=== PATIENT | female | born 1950 | race Caucasian/White ===

== ENCOUNTER → 2019-02-02 | Outpatient (CLI) | payer OTHER ==
[~2019-02-02] MED LIST: ASPI325 PO; ATOR20; CLOP75; HYDACE5 PO; LISI5; METO25; NAPR500 PO; NITR.4SL
[2019-02-02 17:11] LABS: BASOPHILS ABSOLUTE AUTO 0.04 K/mm3 (0.00-0.23); BASOPHILS PERCENT AUTO 0 % (0-2); EOSINOPHILS ABSOLUTE AUTO 0.06 K/mm3 (0.00-0.68); EOSINOPHILS PERCENT AUTO 1 % (0-6); IMMATURE GRAN ABSOLUTE AUTO 0.04 K/mm3 (0.00-0.10); IMMATURE GRAN PERCENT AUTO 0 % (0-1); LYMPHOCYTES ABSOLUTE AUTO 2.34 K/mm3 (0.84-5.20); LYMPHOCYTES PERCENT AUTO 21 % (21-46); MONOCYTES ABSOLUTE AUTO 0.77 K/mm3 (0.16-1.47); MONOCYTES PERCENT AUTO 7 % (4-13); Mean Corpuscular HGB 32.3 pg (26.0-34.0); Mean Corpuscular HGB Conc 34.1 g/dL (31.5-36.5); Mean Corpuscular Volume 95 fL (80-100); NEUTROPHILS ABSOLUTE AUTO 7.85 K/mm3 (1.96-9.15); NEUTROPHILS PERCENT AUTO 71 % (41-73); Platelet Count 217 K/mm3 (150-400); RDW Coefficient Variation 12.1 % (11.7-14.2); RDW Standard Deviation 42.1 fL (35.1-46.3); Red Blood Cell Count 4.65 M/mm3 (3.80-5.20)
[2019-02-02 18:01] LABS: Alanine Aminotransfer (ALT/SGP 23 U/L (12-78); Albumin, Blood 4.2 g/dL (3.4-5.0); Albumin/Globulin Ratio 1.2 (0.8-1.8); Alk Phos 99 U/L (50-136); Anion Gap 9 mmol/L (6-16); Aspartate Aminotrans (AST/SGOT 15 U/L (12-37); Bilirubin, Total 1.1 mg/dL (0.1-1.0); Blood Urea Nitrogen 7 mg/dL (8-24); Bun/Creatinine Ratio 10.3 (12.0-20.0); CHOL/HDL RATIO 3.7; CO2, Blood 28 mmol/L (21-32); Calcium, Blood 9.3 mg/dL (8.5-10.1); Chloride, Blood 104 mmol/L (98-108); Cholesterol 143 mg/dL (50-200); Creatinine, Blood 0.68 mg/dL (0.40-1.00); Globulin, Blood 3.5 g/dL (2.2-4.0); Glomerular Filtration Rate >60 (60-); Glucose, Blood 109 mg/dL (70-99); HDL Cholesterol 39 mg/dL (>39); LDL/HDL RATIO 2.1; Low Density Lipoprotein Chol 82 mg/dL (0-110); Potassium, Blood 3.9 mmol/L (3.5-5.5); Sodium, Blood 141 mmol/L (136-145); Total Protein, Blood 7.7 g/dL (6.4-8.2); Triglycerides 109 mg/dL (30-160); Very Low Density Lipoprot Chol 21 mg/dL (6-32)
== END | disposition home or self-care (01) ==
LOC: LAB SHORT 16:45 → LAB 16:45
PROVIDERS: Nurse Practitioner Family
DX: Z11.59 Encounter for screening for other viral diseases (principal); I25.700 Atherosclerosis of coronary artery bypass graft(s), unspecified, with unstable angina pectoris; E78.5 Hyperlipidemia, unspecified; I10 Essential (primary) hypertension
CPT/HCPCS: 80053; 80061; 85025; 86803

== ENCOUNTER → 2019-08-08 | Outpatient (CLI) | payer OTHER ==
[2019-08-08 18:14] LABS: Alanine Aminotransfer (ALT/SGP 31 U/L (12-78); Alk Phos 99 U/L (50-136); Anion Gap 5 mmol/L (6-16); Aspartate Aminotrans (AST/SGOT 20 U/L (12-37); Bilirubin, Total 0.7 mg/dL (0.1-1.0); Blood Urea Nitrogen 9 mg/dL (8-24); Bun/Creatinine Ratio 12.7 (12.0-20.0); CO2, Blood 28 mmol/L (21-32); Calcium, Blood 9.3 mg/dL (8.5-10.1); Chloride, Blood 106 mmol/L (98-108); Creatinine, Blood 0.71 mg/dL (0.40-1.00); Globulin, Blood 3.9 g/dL (2.2-4.0); Glomerular Filtration Rate >60 (60-); Glucose, Blood 96 mg/dL (70-99); Potassium, Blood 4.2 mmol/L (3.5-5.5); Sodium, Blood 139 mmol/L (136-145); Total Protein, Blood 7.9 g/dL (6.4-8.2)
== END | disposition home or self-care (01) ==
LOC: LAB SHORT 16:52 → LAB 16:52
PROVIDERS: Nurse Practitioner Primary Care
DX: R73.9 Hyperglycemia, unspecified (principal); R53.83 Other fatigue
CPT/HCPCS: 80053; 83036; 84443

== ENCOUNTER → 2019-09-06 | Outpatient (CLI) | payer OTHER ==
[2019-09-06 17:24] LABS: BASOPHILS ABSOLUTE AUTO 0.04 K/mm3 (0.00-0.23); BASOPHILS PERCENT AUTO 1 % (0-2); EOSINOPHILS ABSOLUTE AUTO 0.12 K/mm3 (0.00-0.68); EOSINOPHILS PERCENT AUTO 1 % (0-6); Hematocrit 45.4 % (33.0-51.0); Hemoglobin 15.1 g/dL (11.5-16.0); IMMATURE GRAN ABSOLUTE AUTO 0.01 K/mm3 (0.00-0.10); IMMATURE GRAN PERCENT AUTO 0 % (0-1); LYMPHOCYTES PERCENT AUTO 33 % (21-46); MONOCYTES ABSOLUTE AUTO 0.72 K/mm3 (0.16-1.47); MONOCYTES PERCENT AUTO 8 % (4-13); Mean Corpuscular HGB 31.1 pg (26.0-34.0); Mean Corpuscular HGB Conc 33.3 g/dL (31.5-36.5); Mean Corpuscular Volume 94 fL (80-100); Mean Platelet Volume 11.6 fL (9.1-12.4); NEUTROPHILS ABSOLUTE AUTO 4.99 K/mm3 (1.96-9.15); NEUTROPHILS PERCENT AUTO 57 % (41-73); Platelet Count 239 K/mm3 (150-400); RDW Coefficient Variation 12.2 % (11.7-14.2); RDW Standard Deviation 42.1 fL (35.1-46.3); Red Blood Cell Count 4.85 M/mm3 (3.80-5.20); White Blood Cell Count 8.78 K/mm3 (4.00-11.30)
[2019-09-06 17:54] LABS: CHOL/HDL RATIO 3.2; Cholesterol 142 mg/dL (50-200); HDL Cholesterol 44 mg/dL (>39); LDL Direct Measurement 81 mg/dL (0-130); LDL/HDL RATIO 1.6; Low Density Lipoprotein Chol 72 mg/dL (0-110); Triglycerides 128 mg/dL (30-160); Very Low Density Lipoprot Chol 25 mg/dL (6-32)
[2019-09-09 14:07] LABS: HEPATITIS C QUANTITATION HCV Not Detected IU/mL (.)
== END | disposition home or self-care (01) ==
LOC: LAB 16:28 → LAB SHORT 16:28
PROVIDERS: Nurse Practitioner Family
DX: E78.5 Hyperlipidemia, unspecified (principal); B18.2 Chronic viral hepatitis C
CPT/HCPCS: 80061; 83721; 85025

== ENCOUNTER → 2020-08-21 | Outpatient (CLI) | payer OTHER ==
[2020-08-21 19:41] LABS: BASOPHILS ABSOLUTE AUTO 0.04 K/mm3 (0.00-0.23); BASOPHILS PERCENT AUTO 1 % (0-2); EOSINOPHILS ABSOLUTE AUTO 0.11 K/mm3 (0.00-0.68); EOSINOPHILS PERCENT AUTO 1 % (0-6); Hematocrit 44.5 % (33.0-51.0); Hemoglobin 14.7 g/dL (11.5-16.0); IMMATURE GRAN ABSOLUTE AUTO 0.01 K/mm3 (0.00-0.10); IMMATURE GRAN PERCENT AUTO 0 % (0-1); LYMPHOCYTES ABSOLUTE AUTO 2.93 K/mm3 (0.84-5.20); LYMPHOCYTES PERCENT AUTO 36 % (21-46); MONOCYTES ABSOLUTE AUTO 0.67 K/mm3 (0.16-1.47); MONOCYTES PERCENT AUTO 8 % (4-13); Mean Corpuscular HGB 30.9 pg (26.0-34.0); Mean Corpuscular Volume 94 fL (80-100); Mean Platelet Volume 11.5 fL (9.1-12.4); NEUTROPHILS PERCENT AUTO 55 % (41-73); Platelet Count 236 K/mm3 (150-400); RDW Coefficient Variation 11.7 % (11.7-14.2); RDW Standard Deviation 40.5 fL (35.1-46.3); Red Blood Cell Count 4.75 M/mm3 (3.80-5.20); White Blood Cell Count 8.26 K/mm3 (4.00-11.30)
[2020-08-21 20:28] LABS: Alanine Aminotransfer (ALT/SGP 31 U/L (12-78); Albumin/Globulin Ratio 1.2 (0.8-1.8); Anion Gap 6 mmol/L (6-16); Aspartate Aminotrans (AST/SGOT 18 U/L (12-37); Bilirubin, Total 0.7 mg/dL (0.1-1.0); Blood Urea Nitrogen 10 mg/dL (8-24); Bun/Creatinine Ratio 16.6 (12.0-20.0); CHOL/HDL RATIO 3.3; CO2, Blood 24 mmol/L (21-32); Calcium, Blood 9.1 mg/dL (8.5-10.1); Chloride, Blood 110 mmol/L (98-108); Cholesterol 135 mg/dL (50-200); Globulin, Blood 3.4 g/dL (2.2-4.0); Glomerular Filtration Rate >60 (60-); Glucose, Blood 114 mg/dL (70-99); HDL Cholesterol 41 mg/dL (>39); LDL/HDL RATIO 1.8; Low Density Lipoprotein Chol 74 mg/dL (0-110); Potassium, Blood 3.7 mmol/L (3.5-5.5); Sodium, Blood 140 mmol/L (136-145); Total Protein, Blood 7.4 g/dL (6.4-8.2); Triglycerides 98 mg/dL (30-160); Very Low Density Lipoprot Chol 19 mg/dL (6-32)
[2020-08-21 20:31] LABS: Alk Phos 76 U/L (50-136)
== END | disposition home or self-care (01) ==
LOC: LAB SHORT 14:45 → LAB 14:45
PROVIDERS: Nurse Practitioner Family
DX: E78.5 Hyperlipidemia, unspecified (principal); I10 Essential (primary) hypertension
CPT/HCPCS: 80053; 80061; 85025

== ENCOUNTER → 2021-09-18 | Outpatient (CLI) | payer OTHER ==
[2021-09-19 06:04] LABS: Alanine Aminotransfer (ALT/SGP 22 U/L (12-78); Albumin, Blood 4.1 g/dL (3.4-5.0); Albumin/Globulin Ratio 1.1 (0.8-1.8); Alk Phos 83 U/L (50-136); Anion Gap 5 mmol/L (6-16); Aspartate Aminotrans (AST/SGOT 13 U/L (12-37); Bilirubin, Total 0.9 mg/dL (0.1-1.0); Blood Urea Nitrogen 11 mg/dL (8-24); Bun/Creatinine Ratio 14.9 (12.0-20.0); CHOL/HDL RATIO 3.6; CO2, Blood 29 mmol/L (21-32); Calcium, Blood 9.5 mg/dL (8.5-10.1); Chloride, Blood 106 mmol/L (98-108); Cholesterol 170 mg/dL (50-200); Creatinine, Blood 0.74 mg/dL (0.40-1.00); Globulin, Blood 3.6 g/dL (2.2-4.0); Glomerular Filtration Rate >60 (60-); Glucose, Blood 100 mg/dL (70-99); HDL Cholesterol 47 mg/dL (>39); LDL/HDL RATIO 2.1; Low Density Lipoprotein Chol 99 mg/dL (0-110); Potassium, Blood 3.9 mmol/L (3.5-5.5); Sodium, Blood 140 mmol/L (136-145); Total Protein, Blood 7.7 g/dL (6.4-8.2); Triglycerides 118 mg/dL (30-160); Very Low Density Lipoprot Chol 23 mg/dL (6-32)
== END | disposition home or self-care (01) ==
LOC: LAB SHORT 10:59 → LAB 10:59
PROVIDERS: Nurse Practitioner Family
DX: E78.5 Hyperlipidemia, unspecified (principal)
CPT/HCPCS: 80053; 80061; 84443

== ENCOUNTER → 2022-04-10 | Outpatient (CLI) | payer OTHER ==
[2022-04-10 19:21] LABS: Albumin, Blood 4.1 g/dL (3.4-5.0); Albumin/Globulin Ratio 1.5 (0.8-1.8); Bilirubin, Total 0.8 mg/dL (0.1-1.0); Bun/Creatinine Ratio 14.8 (12.0-20.0); Calcium, Blood 9.6 mg/dL (8.5-10.1); Creatinine, Blood 0.68 mg/dL (0.40-1.00); Globulin, Blood 2.8 g/dL (2.2-4.0); Potassium, Blood 4.3 mmol/L (3.5-5.5); Total Protein, Blood 6.9 g/dL (6.4-8.2)
== END | disposition home or self-care (01) ==
LOC: LAB SHORT 16:38 → LAB 16:38
PROVIDERS: Nurse Practitioner Family
DX: R35.81 Nocturnal polyuria (principal); R73.01 Impaired fasting glucose
CPT/HCPCS: 80053; 83036; 87086

== ENCOUNTER 2023-07-14 11:22 | Observation (INO) | payer OTHER ==
[~2023-07-14] VITALS: Ht 157.5 cm; Wt 83.0 kg
[2023-07-14 12:01] LABS: BASOPHILS ABSOLUTE AUTO 0.05 K/mm3 (0.00-0.23); BASOPHILS PERCENT AUTO 1 % (0-2); EOSINOPHILS ABSOLUTE AUTO 0.12 K/mm3 (0.00-0.68); EOSINOPHILS PERCENT AUTO 2 % (0-6); Hematocrit 42.9 % (33.0-51.0); Hemoglobin 14.7 g/dL (11.5-16.0); IMMATURE GRAN ABSOLUTE AUTO 0.02 K/mm3 (0.00-0.10); IMMATURE GRAN PERCENT AUTO 0 % (0-1); LYMPHOCYTES ABSOLUTE AUTO 2.33 K/mm3 (0.84-5.20); LYMPHOCYTES PERCENT AUTO 31 % (21-46); MONOCYTES ABSOLUTE AUTO 0.71 K/mm3 (0.16-1.47); MONOCYTES PERCENT AUTO 9 % (4-13); Mean Corpuscular HGB 31.7 pg (26.0-34.0); Mean Corpuscular HGB Conc 34.3 g/dL (31.5-36.5); Mean Corpuscular Volume 93 fL (80-100); Mean Platelet Volume 10.7 fL (9.1-12.4); NEUTROPHILS ABSOLUTE AUTO 4.36 K/mm3 (1.96-9.15); NEUTROPHILS PERCENT AUTO 57 % (41-73); Platelet Count 252 K/mm3 (150-400); RDW Coefficient Variation 11.9 % (11.7-14.2); RDW Standard Deviation 40.4 fL (35.1-46.3); Red Blood Cell Count 4.63 M/mm3 (3.80-5.20); White Blood Cell Count 7.59 K/mm3 (4.00-11.30)
[2023-07-14 12:53] LABS: Albumin, Blood 3.5 g/dL (3.4-5.0); Albumin/Globulin Ratio 0.9 (0.8-1.8); Bilirubin, Total 0.6 mg/dL (0.1-1.0); Bun/Creatinine Ratio 23.5 (12.0-20.0); Calcium, Blood 9.3 mg/dL (8.5-10.1); Creatinine, Blood 0.72 mg/dL (0.40-1.00); Globulin, Blood 3.8 g/dL (2.2-4.0); Potassium, Blood 4.1 mmol/L (3.5-5.5); Total Protein, Blood 7.3 g/dL (6.4-8.2)
[2023-07-14 19:26] VITALS: BP 151/84
--- NOTE | 2023-07-15 04:05 | NUR ---
SHIFT SUMMARY 73 YR F ADMITTED THIS SHIFT FOR TIA. FULL CODE. NO ACUTE CHANGES THIS SHIFT. PT IS A&O X 4 AND IS INDEPENDANT IN THE ROOM. SHE HAS HAD NO C/O PAIN OR DISCOMFORT THIS SHIFT. SHE CHOSE TO STAY IN HER OWN CLOTHS AND APPEARS TO BE RESTING COMFORTABLY. NO ABVIOUS DEFICITS ON RIGHT OR LEFT SIDE. SPEECH IS MILDLY SLURRED BUT NOT SURE WHAT IT IS AT BASELINE. SHE HAS HAD NO C/O CONFUSION OR DIZZINESS.
[2023-07-15 04:11] VITALS: BP 108/63
[2023-07-15 05:06] LABS: BASOPHILS ABSOLUTE AUTO 0.06 K/mm3 (0.00-0.23); BASOPHILS PERCENT AUTO 1 % (0-2); EOSINOPHILS ABSOLUTE AUTO 0.19 K/mm3 (0.00-0.68); EOSINOPHILS PERCENT AUTO 2 % (0-6); Hemoglobin 14.3 g/dL (11.5-16.0); IMMATURE GRAN ABSOLUTE AUTO 0.03 K/mm3 (0.00-0.10); IMMATURE GRAN PERCENT AUTO 0 % (0-1); LYMPHOCYTES ABSOLUTE AUTO 3.78 K/mm3 (0.84-5.20); LYMPHOCYTES PERCENT AUTO 37 % (21-46); MONOCYTES ABSOLUTE AUTO 0.82 K/mm3 (0.16-1.47); MONOCYTES PERCENT AUTO 8 % (4-13); Mean Corpuscular HGB 31.7 pg (26.0-34.0); Mean Corpuscular Volume 93 fL (80-100); Mean Platelet Volume 10.9 fL (9.1-12.4); NEUTROPHILS ABSOLUTE AUTO 5.42 K/mm3 (1.96-9.15); NEUTROPHILS PERCENT AUTO 53 % (41-73); Platelet Count 251 K/mm3 (150-400); RDW Coefficient Variation 11.9 % (11.7-14.2); RDW Standard Deviation 40.9 fL (35.1-46.3); Red Blood Cell Count 4.51 M/mm3 (3.80-5.20)
[2023-07-15 05:56] LABS: LDL/HDL RATIO 2.7; Very Low Density Lipoprot Chol 31 mg/dL (6-32)
[2023-07-15 05:57] LABS: Alanine Aminotransfer (ALT/SGP 21 U/L (12-78); Albumin, Blood 3.5 g/dL (3.4-5.0); Alk Phos 76 U/L (50-136); Anion Gap 4 mmol/L (6-16); Aspartate Aminotrans (AST/SGOT 17 U/L (12-37); Bilirubin, Total 0.7 mg/dL (0.1-1.0); Blood Urea Nitrogen 17 mg/dL (8-24); Bun/Creatinine Ratio 24.1 (12.0-20.0); CHOL/HDL RATIO 4.4; CO2, Blood 27 mmol/L (21-32); Calcium, Blood 8.8 mg/dL (8.5-10.1); Chloride, Blood 109 mmol/L (98-108); Cholesterol 199 mg/dL (50-200); Creatinine, Blood 0.71 mg/dL (0.40-1.00); Globulin, Blood 3.5 g/dL (2.2-4.0); Glomerular Filtration Rate 91 (60-); Glucose, Blood 107 mg/dL (70-99); HDL Cholesterol 45 mg/dL (>39); Low Density Lipoprotein Chol 123 mg/dL (0-110); Potassium, Blood 4.2 mmol/L (3.5-5.5); Sodium, Blood 140 mmol/L (136-145); Triglycerides 155 mg/dL (30-160)
[2023-07-15 07:19] VITALS: BP 143/78
[2023-07-15] MEDS ORDERED: ASPI81CH PO (17:06)
[2023-07-15] MEDS ORDERED: ATOR40TA PO (17:06)
[2023-07-15] MEDS ORDERED: LOSA25 PO (17:07)
[2023-07-15] MEDS ORDERED: NEOPOLHCSU BOTHEARS (17:07)
[2023-07-15] MEDS ORDERED: CLOP75 PO (17:07)
--- NOTE | 2023-07-15 18:02 | NUR ---
SHIFT SUMMARY PT AOX4, SBA TO THE BR. BA IN PLACE. PT WAS TO LEAVE THIS SHIFT BUT THE PROVIDER ENCOURAGED HER TO STAY ONE MORE NIGHT. INITIALLY SHE DID NOT WANT TO STAY BUT WANTED TO LEAVE HOWEVER LESS THAN AN HOUR LATER, SHE DECIDED TO STAY. HER DAUGHTER IS AT THE BS RIGHT NOW AND AGREED TO HER STAYING. SHE HAS HAD NO COMPLAINTS THIS SHIFT, SHE HAS BEEN RESTING T/O THE DAY. CALL LIGHT WITHIN REACH, BED IN THE LOWEST POSITION. WILL REPORT TO ONCOMING NURSE.
[2023-07-16 04:56] VITALS: BP 116/60
--- NOTE | 2023-07-16 05:16 | NUR ---
SHIFT SUMMARY 73 YR F ADMITTED ON 07/15/23 FOR TIA. FULL CODE. NO ACUTE CHANGES THIS SHIFT. PT HAS HAD NO C/O PAIN, DISCOMFORT, CHEST PAIN, OR SOB THIS SHIFT. SHE STATES THAT SHE FEELS FINE AND IS ANXIOUS TO GO HOME. SHE APPEARS TO HAVE SLEPT WELL FOR MOST OF THIS SHIFT. NO CALLS FROM MOVE COORDINATOR THIS SHIFT. PT IS PLEASANT AND COOPERATIVE AND ABLE TO MAKE HER NEEDS KNOWN. BED IN LOW POSITION AND CALL LIGHT IN REACH,
[2023-07-16 06:13] LABS: Albumin, Blood 3.5 g/dL (3.4-5.0); Bun/Creatinine Ratio 20.6 (12.0-20.0); Calcium, Blood 9.2 mg/dL (8.5-10.1); Creatinine, Blood 0.68 mg/dL (0.40-1.00); Globulin, Blood 3.6 g/dL (2.2-4.0); Potassium, Blood 4.1 mmol/L (3.5-5.5); Total Protein, Blood 7.1 g/dL (6.4-8.2)
[2023-07-16 08:12] VITALS: BP 129/99
--- NOTE | 2023-07-16 16:36 | NUR ---
PATIENT DISCHARGED TO HOME ACCOMPANIED BY HER DAUGHTER. TELEMTERY AND IV SALINE LOCK REMOVED WITHOUT INCIDENT. VERBALIZED UNDERSTANDING OF D/C INSTRUCTIONS. STATED THAT SHE HAS A PCP IN [place] BUT CANNOT REMEMBER THEIR NAME, BUT HAS AN UPCOMING INTAKE APPOINTMENT. OFF UNIT VIA W/C AT 1628. NO PERSONAL BELONGINGS LEFT BEHIND IN ROOM.
== END 2023-07-16 16:31 | disposition home or self-care (01) ==
LOC: ER 11:22 → MEDS 11:23 → ENPENDDIS 07-15 17:57 → MEDS 07-16 16:31
PROVIDERS: Physician Assistant; ADMIT Internal Medicine
DX: I63.9 Cerebral infarction, unspecified (principal); I25.2 Old myocardial infarction; I10 Essential (primary) hypertension; E78.5 Hyperlipidemia, unspecified; H66.90 Otitis media, unspecified, unspecified ear; Z79.82 Long term (current) use of aspirin; Z79.899 Other long term (current) drug therapy; Z87.891 Personal history of nicotine dependence
CPT/HCPCS: 36415; 70450; 70496; 70498; 70551; 80053; 80061; 82947; 83036; 84443; 85025; 93005; 93010; 93306; 96372; 97116; 97161; 99285-25; A9270; G0378; J1650; Q9967

== ENCOUNTER → 2023-07-30 | Outpatient (CLI) | payer OTHER ==
[~2023-07-30] MED LIST changes: +ASPI81CH PO; +ATOR40TA PO; +CLOP75 PO; +LOSA25 PO; +NEOPOLHCSU BOTHEARS
[2023-07-30 20:34] LABS: Alanine Aminotransfer (ALT/SGP 32 U/L (12-78); Albumin/Globulin Ratio 1.1 (0.8-1.8); Alk Phos 83 U/L (50-136); Anion Gap 5 mmol/L (6-16); Aspartate Aminotrans (AST/SGOT 17 U/L (12-37); Bilirubin, Total 0.8 mg/dL (0.1-1.0); Blood Urea Nitrogen 10 mg/dL (8-24); Bun/Creatinine Ratio 14.3 (12.0-20.0); CO2, Blood 29 mmol/L (21-32); Calcium, Blood 9.2 mg/dL (8.5-10.1); Chloride, Blood 107 mmol/L (98-108); Cholesterol 118 mg/dL (50-200); Globulin, Blood 3.7 g/dL (2.2-4.0); Glomerular Filtration Rate 92 (60-); Glucose, Blood 116 mg/dL (70-99); HDL Cholesterol 40 mg/dL (>39); LDL/HDL RATIO 1.5; Low Density Lipoprotein Chol 61 mg/dL (0-110); Magnesium, Blood 2.5 mg/dL (1.6-2.4); Potassium, Blood 4.1 mmol/L (3.5-5.5); Sodium, Blood 141 mmol/L (136-145); Total Protein, Blood 7.7 g/dL (6.4-8.2); Triglycerides 86 mg/dL (30-160); Very Low Density Lipoprot Chol 17 mg/dL (6-32)
== END ==
LOC: LAB 16:58 → LAB SHORT 16:58
PROVIDERS: Family Medicine
DX: E78.5 Hyperlipidemia, unspecified (principal); I10 Essential (primary) hypertension
CPT/HCPCS: 80053; 80061; 83735; 84443

== ENCOUNTER → 2023-08-11 | Outpatient (CLI) | payer OTHER ==
[2023-08-11 17:37] LABS: BASOPHILS ABSOLUTE AUTO 0.05 K/mm3 (0.00-0.23); BASOPHILS PERCENT AUTO 1 % (0-2); EOSINOPHILS ABSOLUTE AUTO 0.09 K/mm3 (0.00-0.68); EOSINOPHILS PERCENT AUTO 1 % (0-6); Hematocrit 43.7 % (33.0-51.0); IMMATURE GRAN ABSOLUTE AUTO 0.02 K/mm3 (0.00-0.10); IMMATURE GRAN PERCENT AUTO 0 % (0-1); LYMPHOCYTES ABSOLUTE AUTO 2.13 K/mm3 (0.84-5.20); LYMPHOCYTES PERCENT AUTO 26 % (21-46); MONOCYTES ABSOLUTE AUTO 0.75 K/mm3 (0.16-1.47); MONOCYTES PERCENT AUTO 9 % (4-13); Mean Corpuscular HGB 32.2 pg (26.0-34.0); Mean Corpuscular HGB Conc 34.3 g/dL (31.5-36.5); Mean Corpuscular Volume 94 fL (80-100); Mean Platelet Volume 11.6 fL (9.1-12.4); NEUTROPHILS ABSOLUTE AUTO 5.14 K/mm3 (1.96-9.15); NEUTROPHILS PERCENT AUTO 63 % (41-73); Platelet Count 266 K/mm3 (150-400); RDW Standard Deviation 41.4 fL (35.1-46.3); Red Blood Cell Count 4.66 M/mm3 (3.80-5.20); White Blood Cell Count 8.18 K/mm3 (4.00-11.30)
== END | disposition home or self-care (01) ==
LOC: LAB 16:07 → LAB SHORT 16:07
PROVIDERS: Family Medicine
DX: I10 Essential (primary) hypertension (principal)
CPT/HCPCS: 85025

== ENCOUNTER 2023-09-16 09:42 | Inpatient (IN) | payer OTHER ==
[~2023-09-16] VITALS: Ht 157.5 cm; Wt 82.2 kg
[2023-09-16 10:03] LABS: BASOPHILS ABSOLUTE AUTO 0.04 K/mm3 (0.00-0.23); BASOPHILS PERCENT AUTO 1 % (0-2); EOSINOPHILS ABSOLUTE AUTO 0.06 K/mm3 (0.00-0.68); EOSINOPHILS PERCENT AUTO 1 % (0-6); Hematocrit 44.6 % (33.0-51.0); Hemoglobin 15.6 g/dL (11.5-16.0); IMMATURE GRAN ABSOLUTE AUTO 0.01 K/mm3 (0.00-0.10); IMMATURE GRAN PERCENT AUTO 0 % (0-1); LYMPHOCYTES ABSOLUTE AUTO 2.17 K/mm3 (0.84-5.20); LYMPHOCYTES PERCENT AUTO 31 % (21-46); MONOCYTES ABSOLUTE AUTO 0.66 K/mm3 (0.16-1.47); MONOCYTES PERCENT AUTO 10 % (4-13); Mean Corpuscular HGB 32.1 pg (26.0-34.0); Mean Corpuscular Volume 92 fL (80-100); Mean Platelet Volume 10.5 fL (9.1-12.4); NEUTROPHILS ABSOLUTE AUTO 4.04 K/mm3 (1.96-9.15); NEUTROPHILS PERCENT AUTO 58 % (41-73); Platelet Count 252 K/mm3 (150-400); RDW Coefficient Variation 11.9 % (11.7-14.2); RDW Standard Deviation 40.1 fL (35.1-46.3); Red Blood Cell Count 4.86 M/mm3 (3.80-5.20); White Blood Cell Count 6.98 K/mm3 (4.00-11.30)
[2023-09-16 10:47] LABS: Albumin, Blood 3.9 g/dL (3.4-5.0); Albumin/Globulin Ratio 1.1 (0.8-1.8); Bilirubin, Total 0.8 mg/dL (0.1-1.0); Bun/Creatinine Ratio 11.6 (12.0-20.0); Calcium, Blood 9.3 mg/dL (8.5-10.1); Creatinine, Blood 0.86 mg/dL (0.40-1.00); Globulin, Blood 3.7 g/dL (2.2-4.0); Potassium, Blood 3.5 mmol/L (3.5-5.5); Total Protein, Blood 7.6 g/dL (6.4-8.2)
[2023-09-16] MEDS ORDERED: Nitroglycerin 0.4 MG SUBL SL ONE (13:25)
[2023-09-16 14:50] LABS: Anti-Xa UFH, PHA Monitoring <0.10 IU/mL; International Normalized Ratio 1.03; Prothrombin Time Results 10.8 Sec (9.7-11.5)
[2023-09-16] MEDS ORDERED: FLU VACC QS2023-24(6MOS UP)/PF 60 MCG/0.5 ML SYRINGE IM SCH (14:50)
[2023-09-16] MEDS ORDERED: Ondansetron HCl 2 MG / ML 2ML Vial IV PRN (14:50)
[2023-09-16] MEDS ORDERED: Acetaminophen 325 MG TABLET PO PRN (14:50)
[2023-09-16] MEDS ORDERED: Metoprolol Tartrate 25 MG Tab PO SCH (15:00)
[2023-09-16] MEDS ORDERED: Heparin Sodium,Porcine/0.5 NS 500 ML IV SCH (15:20)
[2023-09-16] MEDS ORDERED: FLUTICASONE PRO16 GM (16:13)
[2023-09-16] MEDS ORDERED: TERB250 PO (16:15)
[2023-09-16 16:18] VITALS: BP 150/113
[2023-09-16] MEDS ORDERED: Neomycin/Polymyxin/Hydrocort Otic 10 ml BOTHEARS SCH (17:00)
--- NOTE | 2023-09-16 17:47 | NUR ---
NURSING PCU DAYSHIFT SUMMARY: Assumed care of pt at approx 1600. Arrived from ER via [facility] w/SBA to unit bed. Denies any pain/discomfort at rest, steady on feet, denies dizziness/light headedness. 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 No skin breakdown/wounds though does have rash r/t psoriasis. Tele in place, NSR, no c/o CP/pressure, hypertensive, no noted edema. L/S fairly cta t/o w/fine crackles to RLL, occ moist/[employer] cough, denies dyspnea, O2 sat upper 90's on RA. Abd SNT, BT+, frequently voids, malodorous urine. PIV x2, hep gtt infusing as per pharmacy dosing. PMD at bedside, new d/o received, EKG completed. Labs drawn, awaiting results to report to physician. Pt denies any current needs or questions regarding plan of care. NPO at midnight for anticipated stress test tomorrow. Cont to monitor until rpt is given to NOC RN.
[2023-09-16] MEDS ORDERED: Nitroglycerin 1 INCH/GM PKT TOP SCH (20:00)
[2023-09-16 20:01] VITALS: BP 124/71
[2023-09-16 23:52] VITALS: BP 106/53
[2023-09-16] MEDS ORDERED: Heparin Sodium 5000 Units/ML 1ML MDV IV ONE (23:55)
[2023-09-17] VITALS (13 sets, daily range): BP systolic 95–158; BP diastolic 65–95
--- NOTE | 2023-09-17 05:58 | NUR ---
SHIFT SUMMARY PATIENT ALERT AND ORIENTED X4. PATIENT IS INDEPENDENT IN HER ROOM. ON ROOM AIR WITH SPO2 >90%. VITAL SIGNS STABLE WITH NO EVENTS ON TELE. PATIENT DID REPORT FEELING SOME CHEST PRESSURE WITH SHORTNESS OF BREATH. NITRO PASTE PLACED ON PATIENT PER EMAR. WILL CONTINUE TO MONITOR. CALL LIGHT WITHIN REACH.
[2023-09-17 06:03] LABS: BASOPHILS ABSOLUTE AUTO 0.05 K/mm3 (0.00-0.23); BASOPHILS PERCENT AUTO 1 % (0-2); EOSINOPHILS ABSOLUTE AUTO 0.08 K/mm3 (0.00-0.68); EOSINOPHILS PERCENT AUTO 1 % (0-6); Hematocrit 39.8 % (33.0-51.0); Hemoglobin 14.1 g/dL (11.5-16.0); IMMATURE GRAN ABSOLUTE AUTO 0.01 K/mm3 (0.00-0.10); IMMATURE GRAN PERCENT AUTO 0 % (0-1); LYMPHOCYTES ABSOLUTE AUTO 2.75 K/mm3 (0.84-5.20); LYMPHOCYTES PERCENT AUTO 40 % (21-46); MONOCYTES ABSOLUTE AUTO 0.62 K/mm3 (0.16-1.47); MONOCYTES PERCENT AUTO 9 % (4-13); Mean Corpuscular HGB 32.5 pg (26.0-34.0); Mean Corpuscular HGB Conc 35.4 g/dL (31.5-36.5); Mean Corpuscular Volume 92 fL (80-100); NEUTROPHILS ABSOLUTE AUTO 3.42 K/mm3 (1.96-9.15); NEUTROPHILS PERCENT AUTO 49 % (41-73); Platelet Count 211 K/mm3 (150-400); RDW Coefficient Variation 11.9 % (11.7-14.2); RDW Standard Deviation 39.8 fL (35.1-46.3); Red Blood Cell Count 4.34 M/mm3 (3.80-5.20); White Blood Cell Count 6.93 K/mm3 (4.00-11.30)
[2023-09-17 06:28] LABS: Anion Gap 3 mmol/L (6-16); Blood Urea Nitrogen 10 mg/dL (8-24); Bun/Creatinine Ratio 15.8 (12.0-20.0); CHOL/HDL RATIO 3.6; CO2, Blood 27 mmol/L (21-32); Calcium, Blood 8.9 mg/dL (8.5-10.1); Chloride, Blood 112 mmol/L (98-108); Cholesterol 146 mg/dL (50-200); Creatinine, Blood 0.63 mg/dL (0.40-1.00); Glomerular Filtration Rate 95 (60-); Glucose, Blood 110 mg/dL (70-99); HDL Cholesterol 41 mg/dL (>39); LDL/HDL RATIO 2.1; Low Density Lipoprotein Chol 87 mg/dL (0-110); Potassium, Blood 3.8 mmol/L (3.5-5.5); Sodium, Blood 142 mmol/L (136-145); Triglycerides 90 mg/dL (30-160); Very Low Density Lipoprot Chol 18 mg/dL (6-32)
--- NOTE | 2023-09-17 07:21 | NUR ---
CARE ASSUMPTION / CHEST PRESSURE PT A&O X4. PT REPORTING "A LITTE CHEST PRESSURE" RATING PAIN 2/10 W/ PT REPORT OF PRESSURE ONGOING T/O NIGHT & PRESENT THIS MORNING. EKG DONE. MONITOR SHOWING SR, HR 60s. VSS. SPO2 > 92% ON RA. DR FARMER TO BEDSIDE. PT AWAITING STRESS TEST. NITRO PASTE REMOVED & WILL PLAN TO HOLD NITRO PASTE PENDING STRESS TEST / PLAN OF CARE. HEPARIN GTT INFUSING PER ORDERS.
--- NOTE | 2023-09-17 07:34 | NUR ---
UPDATE / PLAN FOR ANGRIOGRAM MD MONTESINOS W/ REPORT OF CONSULTING CARDIOLOGY W/ PLAN TO CANCEL STRESS TEST & PT TO HAVE ANGIOGRAM TODAY. PT REPORTS ONLY HAVING A FEW SIPS OF WATER SINCE MIDNIGHT. PT NPO. HEPARIN GTT INFUSING.
[2023-09-17] MEDS ORDERED: NS 1,000 ML IV ONE ×2 (08:35→10:05)
[2023-09-17] MEDS ORDERED: NS 250 ML IV ONE (08:35)
[2023-09-17] MEDS ORDERED: Heparin Sodium 1000 Units/ML 10ML MDV ONE (08:35)
[2023-09-17] MEDS ORDERED: Verapamil HCL 2.5 MG/ML 2ML Injection ONE (08:35)
[2023-09-17] MEDS ORDERED: Nitroglycerin 2 MG/20 ML BTL ONE (08:35)
[2023-09-17] MEDS ORDERED: Clopidogrel Bisulfate 75 MG Tab PO SCH (09:00)
[2023-09-17] MEDS ORDERED: Losartan Potassium 25 MG Tab PO SCH (09:00)
[2023-09-17] MEDS ORDERED: Atorvastatin 40 MG Tab PO SCH (09:00)
[2023-09-17] MEDS ORDERED: Aspirin 81 MG Chew PO SCH (09:00)
--- NOTE | 2023-09-17 09:55 | NUR ---
ANGIOGRAM PT TAKEN TO GAS TECHNICIAN BY BED FOR ANGIOGRAM AT THIS TIME. HEPARIN GTT PLACED ON STANDBY PER GAS TECHNICIAN NURSES.
[2023-09-17] MEDS ORDERED: FentaNYL Citrate 50 MCG/ML 2 ML Injection ONE (10:04)
[2023-09-17] MEDS ORDERED: Midazolam HCl 1MG / ML 2ML Vial ONE (10:04)
--- NOTE | 2023-09-17 11:22 | NUR ---
RETURN FROM ANGIO / NEED FOR COBRA PT BACK TO . A&O X4. VSS. SPO2 > 92% ON RA. MONITOR SHOWING SB, HR 50s. R RADIAL ACCESS SITE W/ TR BAND & ARM BOARD IN PLACE. SITE WNL W/ NO BLEEDING & NO HEMATOMA. PT REMINDED OF POST ANGIO MOBILITY RESTRICTIONS/PRECAUTIONS. HEPARIN GTT REMAINS ON STANDBY W/ DR YEE INSTRUCTION TO RESUME HEPARIN AFTER TR BAND RECOVERY. DR YEE DISCUSS W/ PT NEED FOR TRANSFER TO ANOTHER FACILITY. PT AGREEABLE. AWAITING ACCEPTANCE / BED AVAILABILITY FROM [facility].
--- NOTE | 2023-09-17 14:40 | NUR ---
TR BAND R RADIAL ACCESS SITE TR BAND RECOVERY WNL. TRANSPARENT DRESSING PLACED & ARM BOARD IN PLACE. HEPARIN GTT RESUMED PER DR YEE & PHARMACY INSTRUCTION.
--- NOTE | 2023-09-17 17:55 | NUR ---
COBRA TRANSFER PT CONTINUES TO BE A&O X4. VSS. SPO2 > 92% ON RA. MONITOR SHOWING SB-SR, HR 45-60s. PT DENYING CP, REFUSING AFTERNOON DOSE OF NITROPASTE SCHEDULED PER EMAR. PT INDEPENDENT IN RM, MANAGING IV/CORDS/LINES WELL W/ OUT ASSISTANCE. REPORT CALLED TO ACCEPTING [facility]. PT TAKEN BY MASOUD VIA AMBULANCE, DEPARTING FROM U @ APPROX 1745 W/ BELONGINGS & HEPARIN GTT INFUSING.
== END 2023-09-17 18:01 | disposition short-term general hospital (02) | DRG 282 ==
LOC: ER 09:42 → PCU 15:46
PROVIDERS: Student in an Organized Health Care Education/Training Program; ADMIT Internal Medicine
PROC: 4A023N7 Measurement of Cardiac Sampling and Pressure, Left Heart, Percutaneous Approach (ICD-10-PCS; principal; 2023-09-17)
PROC: B2111ZZ Fluoroscopy of Multiple Coronary Arteries using Low Osmolar Contrast (ICD-10-PCS; 2023-09-17)
PROC: B24BZZ3 Ultrasonography of Heart with Aorta, Intravascular (ICD-10-PCS; 2023-09-17)
DX: I21.4 Non-ST elevation (NSTEMI) myocardial infarction (principal); I25.10 Atherosclerotic heart disease of native coronary artery without angina pectoris; E78.5 Hyperlipidemia, unspecified; I10 Essential (primary) hypertension; R73.9 Hyperglycemia, unspecified; I95.81 Postprocedural hypotension; Z86.73 Personal history of transient ischemic attack (TIA), and cerebral infarction without residual deficits; I25.2 Old myocardial infarction; Z87.891 Personal history of nicotine dependence; Z79.02 Long term (current) use of antithrombotics/antiplatelets; Z79.82 Long term (current) use of aspirin; Z79.899 Other long term (current) drug therapy
CPT/HCPCS: 36415; 71046; 80048; 80053; 80061; 83036; 83880; 84484; 85025; 85520; 85610; 85730; 93005; 93010; 96374; 99285-25; A9270; C1769; C1894; J1644; J2250; J3010; J7030; J7050

== ENCOUNTER → 2023-12-17 | Outpatient (CLI) | payer OTHER | LOC: LAB 08:06 → LAB SHORT 08:06 | DX: R20.2 Paresthesia of skin (principal) ==

== ENCOUNTER → 2024-09-19 | Outpatient (CLI) | payer OTHER ==
[~2024-09-19] MED LIST changes: +FLUTICASONE PRO16 GM; +TERB250 PO
[2024-09-19 18:10] LABS: BASOPHILS ABSOLUTE AUTO 0.05 K/mm3 (0.00-0.23); BASOPHILS PERCENT AUTO 1 % (0-2); EOSINOPHILS ABSOLUTE AUTO 0.14 K/mm3 (0.00-0.68); EOSINOPHILS PERCENT AUTO 2 % (0-6); Hematocrit 44.6 % (33.0-51.0); Hemoglobin 15.5 g/dL (11.5-16.0); IMMATURE GRAN ABSOLUTE AUTO 0.01 K/mm3 (0.00-0.10); IMMATURE GRAN PERCENT AUTO 0 % (0-1); LYMPHOCYTES ABSOLUTE AUTO 2.47 K/mm3 (0.84-5.20); LYMPHOCYTES PERCENT AUTO 31 % (21-46); MONOCYTES ABSOLUTE AUTO 0.62 K/mm3 (0.16-1.47); MONOCYTES PERCENT AUTO 8 % (4-13); Mean Corpuscular HGB 32.2 pg (26.0-34.0); Mean Corpuscular HGB Conc 34.8 g/dL (31.5-36.5); Mean Corpuscular Volume 93 fL (80-100); Mean Platelet Volume 11.5 fL (9.1-12.4); NEUTROPHILS ABSOLUTE AUTO 4.79 K/mm3 (1.96-9.15); NEUTROPHILS PERCENT AUTO 59 % (41-73); Platelet Count 254 K/mm3 (150-400); RDW Coefficient Variation 11.8 % (11.7-14.2); RDW Standard Deviation 40.1 fL (35.1-46.3); Red Blood Cell Count 4.81 M/mm3 (3.80-5.20); White Blood Cell Count 8.08 K/mm3 (4.00-11.30)
[2024-09-19 20:30] LABS: Alanine Aminotransfer (ALT/SGP 42 U/L (12-78); Albumin, Blood 3.9 g/dL (3.4-5.0); Albumin/Globulin Ratio 1.1 (0.8-1.8); Alk Phos 93 U/L (50-136); Anion Gap 12 mmol/L (3-11); Aspartate Aminotrans (AST/SGOT 25 U/L (12-37); Bilirubin, Total 1.1 mg/dL (0.1-1.0); Blood Urea Nitrogen 12 mg/dL (8-24); Bun/Creatinine Ratio 17.3 (12.0-20.0); CHOL/HDL RATIO 4.7; CO2, Blood 27 mmol/L (21-32); Calcium, Blood 9.1 mg/dL (8.5-10.1); Chloride, Blood 103 mmol/L (98-108); Cholesterol 207 mg/dL (50-200); Creatinine, Blood 0.69 mg/dL (0.40-1.00); Globulin, Blood 3.5 g/dL (2.2-4.0); Glomerular Filtration Rate 92 (60-); Glucose, Blood 98 mg/dL (70-99); HDL Cholesterol 44 mg/dL (>39); LDL/HDL RATIO 3.2; Low Density Lipoprotein Chol 142 mg/dL (0-110); Potassium, Blood 3.9 mmol/L (3.5-5.5); Sodium, Blood 138 mmol/L (136-145); Total Protein, Blood 7.4 g/dL (6.4-8.2); Triglycerides 103 mg/dL (30-160); Very Low Density Lipoprot Chol 20 mg/dL (6-32)
== END | disposition home or self-care (01) ==
LOC: LAB 17:06 → LAB SHORT 17:06
PROVIDERS: Nurse Practitioner Family
DX: I10 Essential (primary) hypertension (principal); E55.9 Vitamin D deficiency, unspecified; R73.03 Prediabetes
CPT/HCPCS: 80053; 80061; 82306; 83036; 84443; 85025

== ENCOUNTER → 2025-02-13 | Outpatient (CLI) | payer OTHER ==
[2025-02-13 17:49] LABS: Hematocrit 45.2 % (33.0-51.0); Hemoglobin 15.8 g/dL (11.5-16.0); Mean Corpuscular HGB Conc 35.0 g/dL (31.5-36.5); Mean Corpuscular Volume 91 fL (80-100); NRBC ABSOLUTE 0.00 K/mm3 (0.00-0.02); NRBC Auto 0.0 /100 WBC (0.0-0.2); Platelet Count 259 K/mm3 (150-400); RDW Coefficient Variation 11.9 % (11.7-14.2); RDW Standard Deviation 39.7 fL (35.1-46.3)
== END ==
LOC: LAB SHORT 16:11 → LAB 16:11
PROVIDERS: Registered Nurse Emergency
DX: R73.03 Prediabetes (principal)
CPT/HCPCS: 83036; 85027

== ENCOUNTER → 2025-05-30 | Outpatient (CLI) | payer OTHER ==
[2025-05-30 17:53] LABS: Hematocrit 47.1 % (33.0-51.0); Hemoglobin 16.3 g/dL (11.5-16.0); Mean Corpuscular HGB Conc 34.6 g/dL (31.5-36.5); Mean Corpuscular Volume 94 fL (80-100); NRBC ABSOLUTE 0.00 K/mm3 (0.00-0.02); NRBC Auto 0.0 /100 WBC (0.0-0.2); Platelet Count 271 K/mm3 (150-400); RDW Coefficient Variation 12.1 % (11.7-14.2); RDW Standard Deviation 42.0 fL (35.1-46.3)
[2025-05-30 18:34] LABS: Thyroid Stimulating Hormone 1.79 uIU/mL (0.360-4.800)
[2025-06-03 10:47] LABS: VITAMIN B1,WHOLE BLOOD 135 nmol/L (70-180)
== END ==
LOC: LAB 09:17 → LAB SHORT 09:17
PROVIDERS: Family Medicine
DX: R41.3 Other amnesia (principal); E51.8 Other manifestations of thiamine deficiency; E53.8 Deficiency of other specified B group vitamins
CPT/HCPCS: 82746; 84425; 84443; 85027